=== PATIENT | female | born 1995 | race Hispanic/Latino ===

== ENCOUNTER → 2024-11-02 15:50 | Outpatient (CLI) | payer OTHER, SELFPAY ==
[2024-11-02 18:17] LABS: Urine N gonorrhoeae NOT DETECTED
[2024-11-02 18:21] LABS: Urine Chlamydia NOT DETECTED
== END ==
PROVIDERS: Visit Provider Obstetrics & Gynecology
DX: Z34.00 Encounter for supervision of normal first pregnancy, unspecified trimester (principal)
CPT/HCPCS: 87491; 87591

== ENCOUNTER → 2024-11-19 15:48 | Outpatient (CLI) | payer OTHER, SELFPAY ==
[2024-11-19 16:53] LABS: Natera Collection Specimen Collected
[2024-11-19 18:04] LABS: Add Manual Diff / Slide Review NO; Hematocrit 37.2 % (36-46); Hemoglobin 12.8 g/dL (12.0-16.0); Lymphocytes Absolute Auto 1500 /uL (1100-4500); Mean Corpuscular HGB Conc 34.5 % (30-36); Mean Corpuscular Hemoglobin 29.0 PG (26-34); Mean Corpuscular Volume 84.1 fL (80-100); Platelet Count 270 X10^3/uL (150-400)
[2024-11-19 19:46] LABS: Hemoglobin A1C% w Est Avg Glu 5.1 % (4.0-6.0)
[2024-11-20 16:59] LABS: Hepatitis B Surface Antigen NEGATIVE s/c (NEGATIVE)
[2024-11-20 17:16] LABS: HIV 1 & 2 Ab/Ag 4th Gen Combo NEGATIVE (NEGATIVE); Hep C Virus Ab w/Reflex Quant NEGATIVE s/c (NEGATIVE)
== END ==
PROVIDERS: Referring Provider Obstetrics & Gynecology; Visit Provider Obstetrics & Gynecology
DX: Z34.81 Encounter for supervision of other normal pregnancy, first trimester (principal); Z82.79 Family history of other congenital malformations, deformations and chromosomal abnormalities; Z34.00 Encounter for supervision of normal first pregnancy, unspecified trimester
CPT/HCPCS: 36415; 83036; 85025; 86592; 86787; 86803; 86850; 86900; 86901; 87086; 87340; 87389

== ENCOUNTER → 2024-12-28 15:56 | Outpatient (CLI) | payer OTHER, SELFPAY ==
[2024-12-31 15:09] LABS: Gest Age on Col Date 16.0 weeks (.); OSBR Risk 1IN 5926 (.)
== END ==
PROVIDERS: Referring Provider Obstetrics & Gynecology; Visit Provider Obstetrics & Gynecology
DX: Z34.00 Encounter for supervision of normal first pregnancy, unspecified trimester (principal); Z3A.16 16 weeks gestation of pregnancy
CPT/HCPCS: 36415; 82105

== ENCOUNTER → 2025-01-25 13:14 | Outpatient (CLI) | payer OTHER, SELFPAY ==
--- NOTE | 2025-01-25 13:15 | DI.US.S_ITS ---
PROCEDURE: US OB >= 14 WEEKS FETUS INDICATIONS: ANATOMY OUTSIDE/PRIOR DATING DATA: Working ZHANG 06/14/2025 TECHNIQUE: Real-time scanning was performed of the fetus, with image documentation and biometric measurements. COMPARISON: None. FINDINGS: General: A single living intrauterine gestation is present. Presentation: Vertex. Placenta: Placental position is anterior , without previa. Amniotic fluid index: 16.5 cm, normal range is 5-24 cm. Single deepest vertical pocket is 5.2 cm. heart rate: 150 beats per minute. Maternal cervical canal: 4.1 cm long. Normal lower limit is 2.5 cm. biometrics: Biparietal diameter: 4.6 cm 19 weeks and 6 days Head circumference: 17 cm, 19 weeks and 4 days Abdominal circumference: 14.8 cm 20 weeks Femur length: 3 cm, 19 weeks and 1 day Clinically estimated gestational age: 20 weeks Composite gestational age from present scan: 19 weeks and 5 days Estimated weight and percentile: 305 g, 27% Anatomic survey: Neuro: Ventricles are non-dilated at less than 10 mm. Cisterna magna is normal at 3-11 mm. Cerebellum is normal in size and morphology. Nuchal skin fold: Upper limit of normal at 6 mm Face: Not well seen Spine: No evidence for spina bifida. Heart: RVOT and four-chamber view not well seen. Diaphragm: Diaphragm is intact. Stomach: Left-sided stomach is present. Kidneys: No hydronephrosis. Normal is less than 5 mm in 2nd trimester, less than 7 mm in 3rd trimester. Cord: 3-vessel cord has orthotopic insertion. Bladder: Normal in size. Extremities: All 4 extremities identified. IMPRESSION: Intrauterine gestation in vertex presentation. Cardiac motion is seen. Normal ROBYN. EFW within normal limits, 27%. Facial structures, placental cord origin, cardiac 4 chamber view, cardiac RVOT were not well seen. No significant abnormalities otherwise on routine anatomic survey. Short interval follow-up recommended. Nuchal fold measures 6 mm, which is the upper limit of normal. Dictated by: Abdi Lowe M.D. on 01/25/2025 at 19:42 Approved by: Abdi Lowe M.D. on 01/25/2025 at 19:47
== END ==
LOC: US 13:14
PROVIDERS: Referring Provider Obstetrics & Gynecology; Visit Provider Obstetrics & Gynecology
DX: Z34.92 Encounter for supervision of normal pregnancy, unspecified, second trimester (principal); Z3A.20 20 weeks gestation of pregnancy
CPT/HCPCS: 76811

== ENCOUNTER → 2025-02-22 07:19 | Outpatient (CLI) | payer OTHER, SELFPAY ==
[2025-02-22 08:36] LABS: Hematocrit 34.9 % (36-46); Hemoglobin 11.9 g/dL (12.0-16.0)
[2025-02-22 09:01] LABS: GTT (PREG) 1 Hour PP 50gm Dose 152 mg/dL (76-139)
--- NOTE | 2025-02-22 09:15 | DI.US.S_ITS ---
PROCEDURE: US OB FOLLOW UP INDICATIONS: missing certain cardiac and other structural views on anatom TECHNIQUE: Real-time scanning was performed of the fetus, with image documentation. Endovaginal scanning: Not performed COMPARISON: None. FINDINGS: A single living intrauterine gestation is present. Presentation: Vertex. Placenta: Placental position is anterior, without previa Amniotic fluid index: 17.1 cm, normal range is 5-24 cm. Single deepest vertical pocket is 4.8 cm. heart rate: 147 beats per minute. Maternal cervical canal: 4.3 cm long. Normal lower limit is 2.5 cm. Clinically estimated gestational age: 24 weeks 0 days Limited anatomic survey: Repeat evaluation of placental cord insertion, heart, orbits, and face within normal limits. IMPRESSION: Single live intrauterine Limited anatomic survey normal. Dictated by: Ja Garber M.D. on 02/22/2025 at 17:07 Approved by: Ja Garber M.D. on 02/22/2025 at 17:13
== END ==
LOC: US 07:20
PROVIDERS: Referring Provider Obstetrics & Gynecology; Visit Provider Obstetrics & Gynecology
DX: Z34.00 Encounter for supervision of normal first pregnancy, unspecified trimester (principal); Z13.0 Encounter for screening for diseases of the blood and blood-forming organs and certain disorders involving the immune mechanism; Z13.1 Encounter for screening for diabetes mellitus; Z3A.24 24 weeks gestation of pregnancy
CPT/HCPCS: 36415; 76816; 82950; 85014; 85018

== ENCOUNTER → 2025-02-27 07:48 | Outpatient (CLI) | payer OTHER, SELFPAY ==
[2025-02-27 08:50] LABS: Glucose Fasting Gestational 83 mg/dL (76-95)
[2025-02-27 09:50] LABS: Glucose 1 Hour Gest 152 mg/dL (76-180)
[2025-02-27 10:51] LABS: Glucose 2 Hour Gest 149 mg/dL (76-155)
[2025-02-27 11:03] LABS: Glucose Tol Interp,Gestational INTERPRETATION
[2025-02-27 11:41] LABS: Glucose 3 Hour Gest 122 mg/dL (76-140)
== END ==
PROVIDERS: Referring Provider Obstetrics & Gynecology; Visit Provider Obstetrics & Gynecology
DX: O99.810 Abnormal glucose complicating pregnancy (principal)
CPT/HCPCS: 36415; 82951; 82952